=== PATIENT | male | born 1980 | race Hispanic/Latino ===

== ENCOUNTER 2021-06-28 08:19 | Observation (INO) | payer OTHER ==
[~2021-06-28] VITALS: Ht 172.7 cm; Wt 85.7 kg
[2021-06-28] VITALS (17 sets, daily range): BP systolic 116–149; BP diastolic 59–101
[~2021-06-28 08:19] MED LIST: CIPR-278 PO; TRAM50TA4 PO
[2021-06-28 08:54] LABS: BASOPHILS % (AUTO) 0.3 % (0.0-5.0); EOSINOPHILS % (AUTO) 1.9 % (0.0-8.0); LYMPHOCYTES % (AUTO) 13.4 % (21.0-51.0); MEAN CORPUSCULAR HEMOGLOBIN 29.3 pg (27.0-33.0); MEAN CORPUSCULAR HGB CONC 33.8 g/dL (32.0-36.0); MEAN CORPUSCULAR VOLUME 86.7 fL (79-99); MONOCYTES % (AUTO) 8.2 % (3.0-13.0); NEUTROPHILS % (AUTO) 75.7 % (40.0-77.0); PLATELET COUNT (AUTO) 237 K/uL (130-400); RED BLOOD CELL COUNT(AUTO) 5.19 MIL/uL (4.50-6.20); WHITE BLOOD COUNT (AUTO) 10.4 K/uL (4.8-10.8)
[2021-06-28] MEDS ORDERED: 0.9%NACL 1000ML 1,000 ML IV ONE (09:00)
[2021-06-28] MEDS ORDERED: KETOROLAC 30MG VIAL (30MG/ML) IVP ONE (09:00)
[2021-06-28] MEDS ORDERED: ONDANSETRON 4MG INJ IVP ONE (09:00)
[2021-06-28 09:07] LABS: ALBUMIN 3.6 g/dL (3.5-5.0); BILIRUBIN,TOTAL 0.4 mg/dL (0.2-1.0); CREATININE 1.4 mg/dL (0.5-1.5); POTASSIUM 4.5 mmol/L (3.5-5.1); TOTAL PROTEIN, SERUM 8.1 g/dL (6.0-8.3)
[2021-06-28 10:19] LABS: APPEARANCE,URINE Clear (CLEAR); BILIRUBIN,URINE Negative (NEGATIVE); COLOR,URINE Yellow (YELLOW); GLUCOSE, URINE (UA) >=1000 mg/dL (NEGATIVE); KETONES,URINE Trace mg/dL (NEGATIVE); LEUKOCYTE ESTERASE ,URINE Negative (NEGATIVE); NITRATE,URINE Negative (NEGATIVE); OCCULT BLOOD,URINE Negative (NEGATIVE); PH,URINE 5.5 (5.0-8.0); PROTEIN,URINE POS 1+ mg/dL (NEGATIVE); UROBILINOGEN,URINE 0.2 mg/dL (0.2-1.0)
[2021-06-28 10:33] LABS: BACTERIA,URINE Rare /HPF (None Seen); RBC,URINE 0-1 /HPF (0-1); SQUAMOUS EPITHELIAL CELL,UR Rare /HPF (0-2); WBC,URINE 0-1 /HPF (0-1)
[2021-06-28] MEDS ORDERED: MORPHINE 4 MG SYG ONE (10:37)
[2021-06-28] MEDS ORDERED: MORPHINE 4 MG SYG IVP ONE (10:45)
[2021-06-28] MEDS ORDERED: ACETAMINOPHEN 325 MG TAB PO PRN ×2 (12:00)
[2021-06-28] MEDS ORDERED: ONDANSETRON 4MG INJ IV PRN (12:00)
[2021-06-28] MEDS ORDERED: LACTULOSE 20 GM/30 ML UDCUP PO PRN (12:30)
[2021-06-28] MEDS ORDERED: DOCUSATE SODIUM 100 MG CAP PO PRN (12:30)
[2021-06-28] MEDS: HYDROCODONE/ACETAMINOPHEN 5/325 MG TAB PO PRN (12:53)
[2021-06-28] MEDS: MORPHINE 2 MG SYG IV PRN ×2 (14:37→19:02)
[2021-06-28] MEDS: INSULIN HUMULIN R 100 UNIT/ML 3ML SQ SCH (17:00)
[2021-06-28] MEDS: LACTATED RINGERS 1000ML 1,000 ML IV SCH ×3 (19:01→23:58)
[2021-06-28] MEDS ORDERED: IOHEXOL-350 50ML VIAL IV ONE (20:38)
[2021-06-28] MEDS ORDERED: SUCCINYLCHOLINE 200MG/10ML SYR ONE (20:47)
[2021-06-28] MEDS ORDERED: LIDOCAINE PF 100MG/5ML (2%) SYRINGE 5ML ONE (20:47)
[2021-06-28] MEDS ORDERED: ROCURONIUM 10MG/1ML SYR 10 MG/ML ML ONE (20:47)
[2021-06-28] MEDS ORDERED: MIDAZOLAM HCL 1 MG/ML 2ML VIAL ONE (20:47)
[2021-06-28] MEDS ORDERED: CEFTRIAXONE 1G VIAL ONE (20:48)
[2021-06-28] MEDS ORDERED: FENTANYL CITRATE PF 50 MCG/1 ML 2ML VIAL ONE (20:48)
[2021-06-28] MEDS ORDERED: PROPOFOL 10 MG/ML 20ML VIAL IV ONE (20:48)
[2021-06-28] MEDS: FAMOTIDINE 20MG TAB PO SCH (21:00)
[2021-06-28] MEDS ORDERED: INSULIN GLARGINE 100 UNITS/ML 10 ML VIAL SQ SCH (21:00)
[2021-06-28] MEDS ORDERED: CEFTRIAXONE 1G VIAL IVP ONE (21:08)
[2021-06-28] MEDS ORDERED: GLYCOPYRROLATE 1 MG/5 ML SYRINGE ONE (21:55)
[2021-06-28] MEDS ORDERED: NEOSTIGMINE 5MG/5ML SYR IV ONE (21:55)
[2021-06-28] MEDS ORDERED: ONDANSETRON 4MG INJ ONE (21:59)
[2021-06-29] VITALS (11 sets, daily range): BP systolic 107–134; BP diastolic 70–108
[2021-06-29] MEDS ORDERED: KETOROLAC 15MG/ML VIAL (15MG/ML) ONE (02:17)
[2021-06-29] MEDS ORDERED: KETOROLAC 15MG/ML VIAL (15MG/ML) IM PRN (02:30)
[2021-06-29] MEDS: LACTATED RINGERS 1000ML 1,000 ML IV SCH ×2 (03:19→04:12)
[2021-06-29] MEDS: INSULIN HUMULIN R 100 UNIT/ML 3ML SQ SCH ×2 (06:25→12:27)
[2021-06-29] MEDS: HYDROCODONE/ACETAMINOPHEN 5/325 MG TAB PO PRN (08:28)
[2021-06-29] MEDS: FAMOTIDINE 20MG TAB PO SCH (08:28)
[2021-06-29] MEDS ORDERED: AMOX-426 PO (09:44)
[2021-06-29] MEDS ORDERED: IBUP-2077 PO (09:44)
[2021-06-29] MEDS: MORPHINE 2 MG SYG IV PRN (09:53)
== END 2021-06-29 14:19 | disposition home or self-care (01) ==
LOC: EDH 08:19 → EDHIP 11:47 → 3CH 17:35
PROVIDERS: ADMIT Hospitalist; ATTEND Hospitalist
DX: N13.2 Hydronephrosis with renal and ureteral calculous obstruction (principal); Z20.822 Contact with and (suspected) exposure to COVID-19; R10.9 Unspecified abdominal pain; R11.2 Nausea with vomiting, unspecified; M10.9 Gout, unspecified; K59.00 Constipation, unspecified; E11.9 Type 2 diabetes mellitus without complications; Z87.442 Personal history of urinary calculi; Z79.899 Other long term (current) drug therapy; Z98.890 Other specified postprocedural states
CPT/HCPCS: 36415; 52356; 74018; 74176; 80053; 81001; 82360; 82948 ×5; 83690; 85025; 87635; 96361 ×2; 96372; 96374; 96375; 96376 ×2; 99284; A4354; A4358; A4649; A6207; C1758; C1769; C2617; G0378 ×24; J0330; J0696 ×2; J1815 ×3; J1885 ×2; J2001; J2250; J2270; J2405 ×2; J2704; J2710; J3010; J3490; J7030; J7120 ×2; Q9967